=== PATIENT | female | born 1935 | race Caucasian/White ===

== ENCOUNTER 2017-11-30 11:00 | Emergency (ER) | payer MEDICARE, OTHER ==
--- NOTE | 2017-11-30 12:09 | RAD ---
PA AND LATERAL CHEST: Date: 11/30/17 INDICATION: History of irregular heart rate. FINDINGS: Lungs are clear. Cardiomediastinal silhouette is within normal limits. There are calcified lymph node s within the left hilar region. Mild focal lumbar scoliosis. 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 There are postsurgical changes of right rotator cuff repair. Surgical clips are seen within t he right upper quadrant of the abdomen. IMPRESSION: No acute cardiopulmonary abnormality. Findings of prior granulomatous disease. POS: [facility]
== END 2017-11-30 11:52 | disposition home or self-care (01) ==
LOC: SCSER 11:00
DX: J40 Bronchitis, not specified as acute or chronic (principal); E03.9 Hypothyroidism, unspecified
CPT/HCPCS: 71046